=== PATIENT | female | born 1990 | race Caucasian/White ===

== ENCOUNTER 2019-11-15 18:04 | Emergency (ER) | payer OTHER ==
[2019-11-15 19:34] LABS: ABS Eosinophils 0.3 10^3/ul (0-0.6); ABS Lymphocytes 1.7 10^3/ul (1.0-4.8); ABS Monocytes 0.5 10^3/ul (0-0.8); ABS Neutrophils 2.6 10^3/ul (1.5-7.7); Eosinophil % 6.5 %; Hematocrit 32 % (35-47); Hemoglobin 10.6 g/dL (12.0-16.0); Lymphocyte % 33.5 %; Mean Corpuscular HGB Conc 34 g/dL (31-36); Mean Corpuscular Hemoglobin 27 pg (27-31); Mean Corpuscular Volume 81 fL (80-97); Nucleated Red Blood Cells % 0.1; Platelet Count 267 10^3/uL (150-450); Red Blood Count 3.89 10^6 /uL (3.70-4.87); Red Cell Distribution Width 14 % (10-15); White Blood Count 5.2 10^3/uL (3.5-10.8)
[2019-11-15 19:50] LABS: ALT 112 U/L (7-52); AST 50 U/L (13-39); Albumin 3.6 g/dL (3.2-5.2); Albumin/Globulin Ratio 1.4 (1-3); Alkaline Phosphatase 51 U/L (34-104); Anion Gap 6 mmol/L (2-11); BUN/Creatinine Ratio 13.3 (8-20); Blood Urea Nitrogen 11 mg/dL (6-24); CO2 Carbon Dioxide 22 mmol/L (22-32); Calcium 8.5 mg/dL (8.6-10.3); Chloride 110 mmol/L (101-111); EGFR African American 99.8 (>60); EGFR Non-African American 82.5 (>60); Globulin 2.5 g/dL (2-4); Glucose 103 mg/dL (70-100); Potassium 3.9 mmol/L (3.5-5.0); Sodium 138 mmol/L (135-145); Total Protein 6.1 g/dL (6.4-8.9)
[2019-11-15 20:05] LABS: HCG Pregnancy < 0.60 mIU/mL
[2019-11-15] MEDS ORDERED: Furosemide TAB* 40 MG PO ONE (20:22)
[2019-11-15 20:26] LABS: HIV 4th Generation Nonreactive (Nonreactive)
--- NOTE | 2019-11-15 20:30 | ED ---
Complex/Multi-Sys Presentation - HPI Summary HPI Summary: Patient is a 29 y/o F presenting to [facility] with complaints of peripheral edema and SOB. She states that Sx have been present for the past month. Swelling was first noted at her hands, then feet, then legs. Some swelling to her abdomen is also reported. Fever, chest pain, cough, abdominal pain are denied. She was evaluated in [place] for her Sx; bloodwork was done and within normal limits , patient was discharged to home. However, her Sx have since worsened. She reports Hx of hep C and IV drug abuse, but she claims that she has not used any substances in the past three years. Patient reports no cardiac or kidney issues , no Hx of blood clots noted. She is on buspar, hydroxyzine, trazadone, and subutex. Patient notes that she was started on subutex a month ago but states that she has used subutex on the street previously without these Sx. Home medications and allergies are reviewed. Home Medications Medication Instructions Recorded Confirmed Type Furosemide TAB* [Lasix TAB*] 40 mg PO DAILY 14 Days #14 tab 11/15/19 Rx - History Of Current Complaint Chief Complaint: EDShortnessOfBreath Time Seen by Provider: 11/15/19 18:50 Hx Obtained From: Patient Onset/Duration: Lasting Weeks, Still Present Timing: Constant, Weeks Associated Signs And Symptoms: Positive: SOB, Edema. Negative: Cough, Chest Pain, Abdominal Pain, Fever - Allergies/Home Medications Allergies/Adverse Reactions: Allergies Allergy/AdvReac Type Severity Reaction Status Date / Time No Known Allergies Allergy Verified 11/15/19 18:11 Home Medications: Home Medications Furosemide TAB* [Lasix TAB*] 40 mg PO DAILY 14 Days #14 tab 11/15/19 [Rx] PMH/Surg Hx/FS Hx/Imm Hx Sensory History: Denies: Hx Deafness Opthamlomology History: Denies: Hx Legally Blind Psychiatric History: Reports: Hx Substance Abuse Infectious Disease History: No Infectious Disease History: Reports: Hx Hepatitis - C Denies: Traveled Outside the [place] in Last 30 Days - Family History Known Family History: Negative: Diabetes - Social History Alcohol Use: None Substance Use Type: Reports: Prescribed Substance Use Comment - Amount & Last Used: subutex Smoking Status (MU): Light Every Day Tobacco Smoker Review of Systems Negative: Fever Negative: Chest Pain Positive: Shortness Of Breath. Negative: Cough Negative: Abdominal Pain Positive: Edema All Other Systems Reviewed And Are Negative: Yes Physical Exam - Summary Physical Exam Summary: Constitutional: Well-developed, Well-nourished, Alert. (-) Distressed Skin: Warm, Dry HENT: Normocephalic; Atraumatic Eyes: Conjunctiva normal Neck: Musculoskeletal ROM normal neck. (-) JVD, (-) Stridor, (-) Tracheal deviation Cardio: Rhythm regular, rate normal, Heart sounds normal; Intact distal pulses; The pedal pulses are 2+ and symmetric. Radial pulses are 2+ and symmetric. (-) Murmur Pulmonary/Chest wall: Effort normal. (-) Respiratory distress, (-) Wheezes, (-) Rales Abd: Soft, (-) tenderness, (-) Distension, (-) Guarding, (-) Rebound Musculoskeletal: BLE pitting edema, no erythema of BLE noted; hands are swollen as well. Lymph: (-) Cervical adenopathy Neuro: Alert, Oriented x3 Psych: Mood and affect Normal Triage Information Reviewed: Yes Vital Signs On Initial Exam: Initial Vitals Temp Pulse Resp BP Pulse Ox 98.3 F 80 20 146/83 97 11/15/19 18:08 11/15/19 18:08 11/15/19 18:08 11/15/19 18:08 11/15/19 18:08 Vital Signs Reviewed: Yes Procedures - Sedation Patient Received Moderate/Deep Sedation with Procedure: No Diagnostics - Vital Signs Vital Signs Temp Pulse Resp BP Pulse Ox 11/15/19 18:08 98.3 F 80 20 146/83 97 - Laboratory Lab Results: Lab Results 11/15/19 11/15/19 11/15/19 Range/Units 19:20 19:20 19:20 WBC 5.2 (3.5-10.8) 10^3/uL RBC 3.89 (3.70-4.87) 10^6 /uL Hgb 10.6 L (12.0-16.0) g/dL Hct 32 L (35-47) % MCV 81 (80-97) fL MCH 27 (27-31) pg MCHC 34 (31-36) g/dL RDW 14 (10-15) % Plt Count 267 (150-450) 10^3/uL MPV 8.0 (7.4-10.4) fL Neut % (Auto) 49.3 % Lymph % (Auto) 33.5 % Henderson % (Auto) 10.1 % Eos % (Auto) 6.5 % Baso % (Auto) 0.6 % Absolute Neuts (auto) 2.6 (1.5-7.7) 10^3/ul Absolute Lymphs (auto) 1.7 (1.0-4.8) 10^3/ul Absolute Monos (auto) 0.5 (0-0.8) 10^3/ul Absolute Eos (auto) 0.3 (0-0.6) 10^3/ul Absolute Basos (auto) 0.0 (0-0.2) 10^3/ul Absolute Nucleated RBC 0.0 10^3/ul Nucleated RBC % 0.1 Sodium 138 (135-145) mmol/L Potassium 3.9 (3.5-5.0) mmol/L Chloride 110 (101-111) mmol/L Carbon Dioxide 22 (22-32) mmol/L Anion Gap 6 (2-11) mmol/L BUN 11 (6-24) mg/dL Creatinine 0.83 (0.51-0.95) mg/dL Est GFR ( Amer) 99.8 (>60) Est GFR (Non-Af Amer) 82.5 (>60) BUN/Creatinine Ratio 13.3 (8-20) Glucose 103 H (70-100) mg/dL Calcium 8.5 L (8.6-10.3) mg/dL Total Bilirubin 0.30 (0.2-1.0) mg/dL AST 50 H (13-39) U/L ALT 112 H (7-52) U/L Alkaline Phosphatase 51 (34-104) U/L Troponin I 0.00 (<0.03) ng/mL B-Natriuretic Peptide 116 H (<=100) pg/mL Total Protein 6.1 L (6.4-8.9) g/dL Albumin 3.6 (3.2-5.2) g/dL Globulin 2.5 (2-4) g/dL Albumin/Globulin Ratio 1.4 (1-3) Beta HCG, Quant < 0.60 mIU/mL Result Diagrams: 11/15/19 19:20 11/15/19 19:20 Lab Statement: Any lab studies that have been ordered have been reviewed, and results considered in the medical decision making process. - Radiology CXR Radiology Interpretation Completed By: ED Physician Summary of Radiographic Findings: NAD, pending official report. - EKG 1907 Cardiac Rate: NL - rate of 65 BPM EKG Rhythm: Sinus Rhythm Summary of EKG Findings: EKG showed sinus rhythm with rate of 65 BPM, T-wave inversion in V2-V3, no available prior EKG to compare. ED physician has reviewed and interpreted this EKG. Complex Multi-Symp Course/Dx Course Of Treatment: Patient is a 29 y/o F presenting to [facility] with complaints of peripheral edema and SOB. She states that Sx have been present for the past month. Swelling was first noted at her hands, then feet, then legs. Some swelling to her abdomen is also reported. Fever, chest pain, cough, abdominal pain are denied. She was evaluated in [place] for her Sx; bloodwork was done and within normal limits, patient was discharged to home. However, her Sx have since worsened. She reports Hx of hep C and IV drug abuse, but she claims that she has not used any substances in the past three years. Patient reports no cardiac or kidney issues, no Hx of blood clots noted. She is on buspar, hydroxyzine, trazadone, and subutex. Patient notes that she was started on subutex a month ago but states that she has used subutex on the street previously without these Sx. On physical exam, BLE pitting edema noted, no erythema. Patient has bilateral hand swelling as well. EKG showed sinus rhythm with rate of 65 BPM, T-wave inversion in V2-V3, no available prior EKG to compare. CXR showed NAD. Bloodwork was obtained, abnormal values include Hgb 10.6, Hct 32, glucose 103, calcium 8.5, AST 50, ALT 112, BNP 116, total protein 6.1. HIV testing was negative. During ED course, patient received Lasix 40 mg PO. She was discharged to home with prescription for Lasix and was advised to follow up with PCP for possible echocardiogram. - Diagnoses Provider Diagnoses: Peripheral edema, Elevated brain natriuretic peptide (BNP) level, Elevated LFTs Discharge ED - Sign-Out/Discharge Documenting (check all that apply): Patient Departure - discharge - Discharge Plan Condition: Stable Disposition: HOME Prescriptions: Furosemide TAB* [Lasix TAB*] 40 mg PO DAILY 14 Days #14 tab Patient Education Materials: Edema (ED) Referrals: [facility] [Outside] - 2 Days Additional Instructions: Given your fluid retention and elevated BNP, you should follow up with your primary care physician for further evaluation and possible echocardiogram. Please return to ED for any new or concerning symptoms. - Billing Disposition and Condition Condition: STABLE Disposition: Home - Attestation Statements Document Initiated by Florentin: Yes Documenting Scribe: TINO VANCE Provider For Whom Florentin is Documenting (Include Credential): HUMBERTO HUDSON DO Scribe Attestation: TINO Kate scribed for HUMBERTO HUDSON DO on 11/15/19 at 2143. Scribe Documentation Reviewed: Yes Provider Attestation: The documentation as recorded by the TINO morelos accurately reflects the service I personally performed and the decisions made by , HUMBERTO HUDSON DO Status of Scrluan Document: Viewed
[2019-11-15 20:39] VITALS: BP 141/75
== END 2019-11-15 20:39 | disposition home or self-care (01) ==
LOC: ED 18:04
DX: R60.0 Localized edema (principal); R79.89 Other specified abnormal findings of blood chemistry; Z86.19 Personal history of other infectious and parasitic diseases; F17.200 Nicotine dependence, unspecified, uncomplicated
CPT/HCPCS: 36415; 71046; 80053; 83880; 84484; 84702; 85025; 87389; 99282; A9270-GY

== ENCOUNTER 2019-12-14 12:04 | Emergency (ER) | payer OTHER ==
[2019-12-14] MEDS ORDERED: Magic Mouth Was-BEN/MAAL/LIDO SWISH SPIT ONE (12:31)
[2019-12-14] MEDS ORDERED: Ibuprofen TAB* 600 MG PO ONE (12:31)
[2019-12-14] MEDS ORDERED: diPHENhydraMINE PO* 25 MG PO ONE (12:31)
[2019-12-14 13:07] LABS: Rapid Strep Molecular Negative (Negative)
[2019-12-14 14:24] VITALS: BP 142/72
--- NOTE | 2019-12-14 15:51 | ED ---
Throat Pain/Nasal Congestion - HPI Summary HPI Summary: Patient presents to the ED with R sided lower jaw swelling. She is having the R sided swelling which is slight with no pain. She denies any difficulty swallowing. Denies any airway compromise or difficulty breathing. No SOB, CP, throat pain or dental pain. No pain to the sinuses and no VALDEZ. Denies fever, sweats or chills. Denies cough or congestion. She has never had this before. Denies eating immediately before this occurring. No allergies. - History of Current Complaint Chief Complaint: EDThroatPain Time Seen by Provider: 12/14/19 12:22 Hx Obtained From: Patient Onset/Duration: Sudden Onset Severity: Moderate Associated Signs And Symptoms: Positive: Negative. Negative: Dysphagia, Drooling, Wheezing, Hoarseness, Sinus Discomfort, Nasal Discharge - Epiglottits Risk Factors Epiglottis Risk Factors: Negative - Allergies/Home Medications Allergies/Adverse Reactions: Allergies Allergy/AdvReac Type Severity Reaction Status Date / Time gabapentin Allergy Shakes Verified 12/14/19 12:09 Home Medications: Home Medications Furosemide TAB* [Lasix TAB*] 40 mg PO DAILY 14 Days #14 tab 11/15/19 [Rx] Magic Mouth Was-GUERO/MAAL/LIDO* 5 ml SWISH SPIT QID #100 ml 12/14/19 [Rx] PMH/Surg Hx/FS Hx/Imm Hx Previously Healthy: Yes Sensory History: Denies: Hx Legally Blind, Hx Deafness Opthamlomology History: Denies: Hx Legally Blind Psychiatric History: Reports: Hx Substance Abuse - Immunization History Hx Pertussis Vaccination: No Immunizations Up to Date: Yes Infectious Disease History: No Infectious Disease History: Reports: Hx Hepatitis - C Denies: Traveled Outside the [place] in Last 30 Days - Family History Known Family History: Negative: Diabetes - Social History Occupation: Unemployed Lives: Alone - at [employer] Alcohol Use: None Hx Substance Use: Yes Substance Use Type: Reports: Prescribed Substance Use Comment - Amount & Last Used: subutex Hx Tobacco Use: Yes Smoking Status (MU): Light Every Day Tobacco Smoker Review of Systems Negative: Fever, Chills, Fatigue, Skin Diaphoresis ENT: Other - right sided lower jaw swelling Negative: Palpitations, Chest Pain Negative: Cough Negative: Arthralgia, Myalgia Skin: Negative Neurological/Mental Status: Negative All Other Systems Reviewed And Are Negative: Yes Physical Exam Triage Information Reviewed: Yes Vital Signs On Initial Exam: Initial Vitals Temp Pulse Resp BP Pulse Ox 97.8 F 71 14 150/74 99 12/14/19 12:06 12/14/19 12:06 12/14/19 12:06 12/14/19 12:06 12/14/19 12:06 Vital Signs Reviewed: Yes Appearance: Positive: Well-Appearing, Well-Nourished Skin: Positive: Warm, Skin Color Reflects Adequate Perfusion Head/Face: Positive: Normal Head/Face Inspection Eyes: Positive: EOMI, MYLENE, Conjunctiva Clear ENT: Positive: Other - right sided lower jaw swelling without pain, inner R buccal mucosa inflammation Neck: Positive: Supple, No Lymphadenopathy Respiratory/Lung Sounds: Positive: Clear to Auscultation, Breath Sounds Present Cardiovascular: Positive: RRR, Pulses are Symmetrical in both Upper and Lower Extremities Neurological: Positive: Sensory/Motor Intact, Alert, Oriented to Person Place, Time, Speech Normal Psychiatric: Positive: Affect/Mood Appropriate AVPU Assessment: Alert Procedures - Sedation Patient Received Moderate/Deep Sedation with Procedure: No Diagnostics - Vital Signs Vital Signs Temp Pulse Resp BP Pulse Ox 12/14/19 14:23 98.2 F 75 16 142/72 100 12/14/19 12:06 97.8 F 71 14 150/74 99 - Laboratory Lab Results: Lab Results 12/14/19 Range/Units 12:48 Group A Strep Rapid Negative (Negative) Lab Statement: Any lab studies that have been ordered have been reviewed, and results considered in the medical decision making process. EENT Course/Dx - Course Course Of Treatment: During the course of treatment, the patient's evaluated for right lower jaw swelling. This is located over the right submandibular gland. She does admit to some tongue swelling, however this is very mild. She does have some swelling to the inside of the right cheekbuccal mucosa which is not discolored and does not appear to ulcerative, however has a small bubble appearance to the area measuring 1.5cm. This is not painful. She denies any difficulty with swallowing, dysphagia, odynophagia or airway compromise. Afebrile. She denies any pain to this area. She states she has slight tenderness to the left side and slight tenderness to the throat. Strep swab obtained and is negative. Discussed with the patient this may be sialadenitis and encouraged hard sour candies. D/t the inner buccal mucosa lining inflammation of unknown source, magic mouth wash is prescribed. - Diagnoses Provider Diagnoses: Mandibular swelling Discharge ED - Sign-Out/Discharge Documenting (check all that apply): Patient Departure - Discharge Plan Condition: Stable Disposition: HOME Prescriptions: Magic Mouth Was-GUERO/MAAL/LIDO* 5 ml SWISH SPIT QID #100 ml Forms: *Gen. Provider Communication Referrals: No Primary Care Phys,NOPCP [Primary Care Provider] - Additional Instructions: hard candies - more specifically lemon candies may help with some of the swelling if there is a stone present Continue with magic mouthwash four times daily until gone If symptoms worse - please return to the ED - Billing Disposition and Condition Condition: STABLE Disposition: Home
== END 2019-12-14 14:23 | disposition home or self-care (01) ==
LOC: ED 12:04
DX: M27.2 Inflammatory conditions of jaws (principal); R60.9 Edema, unspecified; F17.210 Nicotine dependence, cigarettes, uncomplicated; Z88.8 Allergy status to other drugs, medicaments and biological substances; Z79.899 Other long term (current) drug therapy
CPT/HCPCS: 87651; 99282; A9270-GY